=== PATIENT | male | born 1975 | race Caucasian/White ===

== ENCOUNTER 2019-02-10 05:20 | Emergency (ER) | payer MEDICAID ==
[2019-02-10] MEDS ORDERED: Multivitamin Inj 10 ML, Thiamine HCL 100 MG, Magnesium Sulfate 2 GM, Folic Acid 1 MG in... IV ONE (06:29)
[2019-02-10] MEDS ORDERED: Sodium Chloride 0.9% 1,000 ML IV ONE (06:30)
--- NOTE | 2019-02-10 06:34 | ED Physician Chart ---
ED Chief Complaint/HPI - Patient Information Date Seen:: 02/10/19 Time Seen:: 06:31 Chief Complaint:: etoh abuse History of Present Illness:: 43 yr old male on etoh binge since last here with withdrawal with shakes etc Allergies:: Allergies Allergy/AdvReac Type Severity Reaction Status Date / Time amoxicillin Allergy Verified 02/10/19 05:40 Vitals:: Vital Signs - 8 hr 02/10/19 05:25 Temp 99.2 F HR 114 RR 20 BP 108/82 O2 Sat % 98 ED Review of Systems - Review of Systems General/Constitutional: No fever, No chills, No weight loss, No weakness, No diaphoresis, No edema, No loss of appetite, Other (skin dirty balck blotches) Skin: No skin lesions, No rash, No bruising Head: No headache, No light-headedness Eyes: No loss of vision, No pain, No diplopia ENT: No earache, No nasal drainage, No sore throat, No tinnitus Neck: No neck pain, No swelling, No thyromegaly, No stiffness, No mass noted Cardio Vascular: No chest pain, No palpitations, No PND, No orthopnea, No edema Pulmonary: No SOB, No cough, No sputum, No wheezing GI: No nausea, No vomiting, No diarrhea, No pain, No melena, No hematochezia, No constipation, No hematemesis G/U: No dysuria, No frequency, No hematuria Musculoskeletal: No bone or joint pain, No back pain, No muscle pain Endocrine: No polyuria, No polydipsia Psychiatric: No prior psych history, No depression, No anxiety, No suicidal ideation Hematopoietic: No bruising, No lymphadenopathy Allergic/Immuno: No urticaria, No angioedema Neurological: No syncope, No focal symptoms, No weakness, No paresthesia, No headache, No seizure, No dizziness, No confusion, No vertigo ED Past Medical History - Past Medical History Past Medical History: Other (etoh abuse) Family Medical History - Family Member Mother History Unknown: Yes ED Physical Exam - Physical Examination General/Constitutional: Awake, Well-developed, well-nourished, Alert, No distress, GCS 15, Non-toxic appearing, Ambulatory Head: Atraumatic Eyes: Lids, conjuctiva normal, PERRL, EOMI Skin: Nl inspection, No rash, No skin lesions, No ecchymosis, Well hydrated, No lymphadenopathy ENMT: External ears, nose nl, Nasal exam nl, Lips, teeth, gums nl Neck: Nontender, Full ROM w/o pain, No JVD, No nuchal rigidity, No bruit, No mass, No stridor Respiratory: Nl effort/Exclusion, Clear to Auscultation, No Wheeze/Rhonchi/Rales Cardio Vascular: RRR, No murmur, gallop, rubs, NL S1 S2 GI: No tenderness/rebounding/guarding, No organomegaly, No hernia, Normal BS's, Nondistended, No mass/bruits, No McBurney tenderness : No CVA tenderness Extremities: No tenderness or effusion, Full ROM, normal strength in all extremities, No edema, Normal digits & nails Neuro/Psych: Alert/oriented, DTR's symmetric, Normal sensory exam, Normal motor strength, Judgement/insight normal, Mood normal, Normal gait, No focal deficits Misc: Normal back, No paraspinal tenderness ED Assessment - Assessment General Assessment: etoh abuse ED Septic Shock - . Is Septic Shock (SBP<90, OR Lactate>4 mmol\L) present?: No - <6hrs of presentation: Vital Signs: Vital Signs - 8 hr 02/10/ 05:25 Temp 99.2 F HR 114 RR 20 BP 108/82 O2 Sat % 98 ED Reassessment (Disposition) - Reassessment Reassessment:: etoh abuse - Diagnosis Diagnosis:: etoh abuse - Patient Disposition Discharge/Transfer:: Home Condition at Disposition:: Stable
[2019-02-10 07:10] LABS: HEMATOCRIT 35.2 % (41.0-60); HEMOGLOBIN 12.1 gm/dL (12-16); MEAN CELL VOLUME 102.7 fl (80-99); MEAN CORPUSCULAR HEMOGLOBIN 35.4 pg (26.0-30.0); MEAN CORPUSCULAR HGB CONC 34.5 pg (28.0-36.0); MEAN PLATELET VOLUME 7.1 fl; PLATELET COUNT 92 Th/cmm (150-400); RED BLOOD COUNT 3.42 Mil/cmm (4.30-5.70); WHITE BLOOD COUNT 4.4 Th/cmm (4.8-10.8)
[2019-02-10 07:13] LABS: INR 1.05 (0.5-1.4); PROTHROMBIN TIME (TEST) 10.9 SECONDS (9.5-11.5)
[2019-02-10 07:21] LABS: ALB/GLOB RATIO 1.6 (1.0-1.8); ALBUMIN 4.1 gm/dL (4.2-5.5); ALKALINE PHOSPHATASE 91 U/L (34-104); ANION GAP 16.3 (7.0-16.0); BILIRUBIN,TOTAL 4.1 mg/dL (0.3-1.0); BUN - UREA NITROGEN 7 mg/dL (7-25); CALCIUM SERUM 9.2 mg/dL (8.6-10.3); CARBON DIOXIDE 24.9 mEq/L (21.0-31.0); CHLORIDE 93 mEq/L (98-107); CREATININE - SERUM 0.7 mg/dL (0.7-1.3); GFR AFRICAN-AMERICAN > 60.0 ml/min (>90); GFR NON AFRICAN-AMERICAN > 60.0 ml/min; GLUCOSE 111 mg/dL (70-105); POTASSIUM SERUM 3.2 mEq/L (3.5-5.1); SGOT 231 U/L (13-39); SGPT/ALT 77 U/L (7-52); SODIUM SERUM 131 mEq/L (136-145); TOTAL PROTEIN,SERUM 6.6 gm/dL (6.0-8.3)
[2019-02-10 08:13] LABS: BAND NEUTROPHILE 0 % (0-10); BASOPHIL 3 % (0-3); EOSINOPHIL 1 % (0-5); LYMPHOCYTE 20 % (20-50); MONOCYTE 7 % (2-10); NEUTROPHILS 69 % (40-80)
[2019-02-10 08:14] LABS: PLATELET ESTIMATE DECREASED PLATELETS (NORMAL)
[2019-02-10 10:07] LABS: URINE SOURCE CLEAN C
[2019-02-10 10:10] LABS: URINE BILIRUBIN NEGATIVE (NEGATIVE); URINE BLOOD NEGATIVE (NEGATIVE); URINE GLUCOSE (UA) NEGATIVE (NEGATIVE); URINE KETONE NEGATIVE (NEGATIVE); URINE LEUKOCYTE ESTERASE NEGATIVE (NEGATIVE); URINE NITRATE NEGATIVE (NEGATIVE); URINE PH 7.5 (4.6 - 8.0); URINE PROTEIN NEGATIVE (NEGATIVE)
[2019-02-10 10:23] LABS: URINE COLOR YELLOW
[2019-02-10 10:24] LABS: URINE CLARITY CLEAR (CLEAR); URINE MICROSCOPIC INDICATED? YES
[2019-02-10 10:25] LABS: URINE BACTERIA OCCASIONAL /hpf (NONE SEEN); URINE EPITHELIAL CELLS NONE SEEN /lpf (FEW); URINE RBC NONE SEEN /hpf (0-5); URINE WBC NONE SEEN /hpf (0-5)
[2019-02-10 12:23] LABS: AMPHETAMINE URINE NEGATIVE (NEGATIVE); BARBITURATES URINE NEGATIVE (NEGATIVE); BENZODIAZEPINES QUAL URINE POSITIVE (NEGATIVE); CANNABINOID THC NEGATIVE (NEGATIVE); COCAINE METABOLITE QUAL URINE NEGATIVE (NEGATIVE); METHADONE URINE NEGATIVE (NEGATIVE); METHAMPHETAMINES QUAL URINE NEGATIVE (NEGATIVE); OPIATES (MORPHINE) QUAL. URINE NEGATIVE (NEGATIVE); PHENCYCLIDINE (PCP) URINE NEGATIVE (NEGATIVE); TRICYCLICS (TCA) QUAL. URINE NEGATIVE (NEGATIVE)
== END 2019-02-10 13:00 | disposition home or self-care (01) ==
LOC: ER 05:20
DX: F10.10 Alcohol abuse, uncomplicated (principal); Z88.0 Allergy status to penicillin; Y90.0 Blood alcohol level of less than 20 mg/100 ml
CPT/HCPCS: 36415-UA; 80053-TC; 80307; 80320-TC; 81001-TC; 84443-TC; 85007-TC; 85025-TC; 85610-TC; 85730-TC; J7030; Z7502